=== PATIENT | female | born 1980 | race Two or more races ===

== ENCOUNTER 2021-11-05 04:44 | Emergency (ER) | payer MEDICAID ==
[~2021-11-05] VITALS: Ht 167.6 cm; Wt 60.0 kg
[2021-11-05] MEDS ORDERED: MORPHINE SULFATE 4 MG/ML CPJ (NOT FOR IM USE) IV STA (05:13)
[2021-11-05] MEDS ORDERED: MAGNESIUM/ALUMINUM HYDROXIDE/SIMETHICONE 30ML UDC PO STA (05:13)
[2021-11-05] MEDS ORDERED: METOCLOPRAMIDE HCL 10MG/2ML VIAL IV STA (05:13)
[2021-11-05] MEDS ORDERED: SODIUM CHLORIDE 0.9% 1,000 ML IV ONE (05:15)
[2021-11-05 05:52] LABS: CLARITY URINE CLOUDY (CLEAR); COLOR URINE YELLOW (YELLOW); KETONES URINE 1+ (NEGATIVE); LEUKOCYTE ESTERASE URINE 2+ (NEGATIVE); NITRITE URINE POSITIVE (NEGATIVE); OCCULT BLOOD URINE NEGATIVE (NEGATIVE); PH URINE 7.5 (4.5-8.0); PROTEIN URINE 1+ (NEGATIVE); SPECIFIC GRAVITY URINE 1.016 (1.005-1.030)
[2021-11-05 05:59] LABS: BASOPHILS % 0.5 % (0.0-2.0); EOSINOPHILS % 0.4 % (0.0-5.0); HEMATOCRIT. 35.1 % (36.0-48.0); HEMOGLOBIN. 11.7 g/dL (12.0-16.0); LYMPHOCYTES % 13.3 % (20.0-50.0); MEAN CORPUSCULAR HEMOGLOBIN 27.4 pg (28.0-32.0); MEAN CORPUSCULAR VOLUME 82.4 fL (81.0-99.0); MEAN PLATELET VOLUME 8.4 fl (7.4-10.4); NEUTROPHILS % 80.8 % (40.0-76.0); PLATELET 339 x1000/uL (130-400); RED BLOOD CELL COUNT 4.26 mill/uL (4.2-5.4)
[2021-11-05 06:07] LABS: CHLORIDE 102 mEq/L (98-107)
[2021-11-05 06:13] LABS: ETHANOL BLOOD < 10 mg/dL
[2021-11-05 06:16] LABS: HCG SCREEN NEGATIVE
[2021-11-05 06:21] LABS: B-HCG QUANTITATIVE < 1 mIU/mL (<3)
[2021-11-05 10:00] VITALS: BP 135/79
[2021-11-05] MEDS ORDERED: NITR-87 MT (10:03)
[2021-11-05] MEDS ORDERED: FAMO20TA8 MT ×2 (10:07)
== END 2021-11-05 10:45 | disposition home or self-care (01) ==
LOC: ER 04:44
DX: N39.0 Urinary tract infection, site not specified (principal); R03.0 Elevated blood-pressure reading, without diagnosis of hypertension; K25.9 Gastric ulcer, unspecified as acute or chronic, without hemorrhage or perforation; T85.43XD Leakage of breast prosthesis and implant, subsequent encounter; Z87.19 Personal history of other diseases of the digestive system; Y82.8 Other medical devices associated with adverse incidents; Y92.89 Other specified places as the place of occurrence of the external cause
CPT/HCPCS: 36415; 71045; 74176; 80053; 80320; 81003; 83690; 83880; 84484; 84702; 84703; 85025; 96361; 96374; 96375; 99285; J2270; J2765; J7030; G0480